=== PATIENT | male | born 1980 | race Caucasian/White ===

== ENCOUNTER → 2017-01-23 | Outpatient (CLI) | payer OTHER ==
[~2017-01-23] VITALS: Ht 182.9 cm; Wt 86.2 kg
[~2017-01-23] MED LIST: ASMANEX TW200 MICRO1 PO; FLONASE16 G1 BOTH NARES
== END | disposition home or self-care (01) ==
LOC: AMB 10:51
DX: R13.10 Dysphagia, unspecified (principal); K20.0 Eosinophilic esophagitis
CPT/HCPCS: 88305; J2250; J3010

== ENCOUNTER → 2018-04-06 | Outpatient (CLI) | payer OTHER ==
[~2018-04-06] VITALS: Ht 182.9 cm; Wt 83.9 kg
[~2018-04-06] MED LIST changes: +OMEPRAZOLE40 M1 PO; +VENTOLIN HFA18 GM IH
== END | disposition home or self-care (01) ==
LOC: AMB 12:30
DX: K20.0 Eosinophilic esophagitis (principal); J45.909 Unspecified asthma, uncomplicated; R13.10 Dysphagia, unspecified; Z83.49 Family history of other endocrine, nutritional and metabolic diseases; Z82.49 Family history of ischemic heart disease and other diseases of the circulatory system
CPT/HCPCS: 88305; J2405